=== PATIENT | male | born 1945 | race Caucasian/White ===

== ENCOUNTER 2017-04-12 17:46 | Emergency (ER) | payer OTHER, MEDICARE ==
[2017-04-12] MEDS ORDERED: DIPHTH,PERTUSS(ACELL),TET VAC 0.5 ML VIAL IM ONE ×2 (18:28→18:35)
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
[2017-04-12 19:50] VITALS: BP 140/74
== END 2017-04-12 19:58 | disposition home or self-care (01) ==
LOC: ER 17:46
DX: S50.312A Abrasion of left elbow, initial encounter (principal); V43.52XA Car driver injured in collision with other type car in traffic accident, initial encounter; S80.812A Abrasion, left lower leg, initial encounter; M54.2 Cervicalgia; Z23 Encounter for immunization